=== PATIENT | male | born 1985 | race Caucasian/White ===

== ENCOUNTER 2019-02-11 19:21 | Inpatient (IN) | payer OTHER ==
[~2019-02-11] VITALS: Ht 182.9 cm; Wt 70.0 kg
[2019-02-11 19:15] VITALS: BP 116/71
[2019-02-11] MEDS ORDERED: ALBUTEROL SULFATE HFA 90 MCG/PUFF 8 GM INHALER IH PRN (22:15)
[2019-02-11] MEDS ORDERED: DOCUSATE SODIUM 100 MG CAPSULE PO PRN (22:15)
[2019-02-11] MEDS ORDERED: CloNIDine HCL 0.1 MG TABLET PO PRN (22:15)
[2019-02-11] MEDS ORDERED: MAG HYDROX/AL HYDROX/SIMETH ES 30 ML SUSPENSION UDCUP PO PRN (22:15)
[2019-02-11] MEDS ORDERED: PETROLATUM,WHITE 28 GM JELLY TP PRN (22:15)
[2019-02-11] MEDS ORDERED: NICOTINE 14 MG/24 HOUR PATCH TD PRN (22:15)
[2019-02-11] MEDS ORDERED: ONDANSETRON HCL 4 MG TABLET PO PRN (22:15)
[2019-02-11] MEDS ORDERED: GuaiFENesin/D-METHORPHAN [SUGAR-FREE] 200-20MG/10 ML SYRUP UDCUP PO PRN (22:15)
[2019-02-11] MEDS ORDERED: LOPERAMIDE HCL 2 MG CAPSULE PO PRN (22:15)
[2019-02-11] MEDS ORDERED: MAGNESIUM HYDROXIDE SUSPENSION 30 ML UDCUP PO PRN (22:15)
[2019-02-11] MEDS: IBUPROFEN 400 MG TABLET PO PRN (22:43)
[2019-02-12] MEDS: ACETAMINOPHEN 325 MG TABLET PO PRN (00:58)
[2019-02-12 00:59] VITALS: BP 103/64
[2019-02-12 04:14] VITALS: BP 111/69
[2019-02-12 06:43] LABS: BASOPHILS % (AUTO) 1.7 % (0.0-2.0); EOSINOPHILS % (AUTO) 8.4 % (1.0-6.0); HEMATOCRIT 43.3 % (41-53); LYMPHOCYTES # (AUTO) 1.8 K/uL (1.0-4.8); LYMPHOCYTES % (AUTO) 29.5 % (22.0-44.0); MEAN CORPUSCULAR HEMOGLOBIN 29.9 pg (26.0-34.0); MEAN CORPUSCULAR HGB CONC 34.7 G/dL (31.0-37.0); MEAN CORPUSCULAR VOLUME 86 fL (80-100); MONOCYTES # (AUTO) 0.4 K/uL (0.1-1.0); MONOCYTES % (AUTO) 6.3 % (2.0-9.0); NEUTROPHILS # (AUTO) 3.2 K/uL (1.8-7.7); NEUTROPHILS % (AUTO) 54.1 % (40.0-70.0); PLATELET COUNT (AUTO) 267 K/uL (150-450); RED BLOOD CELL COUNT(AUTO) 5.02 MIL/uL (4.50-5.90); RED CELL DISTRIBUTION WIDTH 13.1 % (11.5-14.5)
[2019-02-12 07:03] LABS: ALANINE AMINOTRANSFERASE 129 U/L (12-78); ALBUMIN 3.4 g/dL (3.4-5.0); ALKALINE PHOSPHATASE 67 U/L (46-116); ANION GAP 5 mmol/L (8-16); ASPARTATE AMINOTRANSFERASE 87 U/L (15-37); BILIRUBIN,TOTAL 0.3 mg/dL (0.1-1.0); CARBON DIOXIDE 31 mmol/L (22-29); CHLORIDE 103 mmol/L (98-107); CHOL/HDL RATIO 5.1 (4.2-7.3); CHOLESTEROL 149 mg/dL (131-200); CREATININE 0.88 mg/dL (0.60-1.30); GLOMERULAR FILTR. RATE CALC > 60 mL/min (>60); GLUCOSE,RANDOM 100 mg/dL (70-110); HDL CHOLESTEROL 29 mg/dL (40-60); LDL CHOL (CALC.) 101 mg/dL (0-130); POTASSIUM 3.5 mmol/L (3.5-5.1); SODIUM SERUM 139 mmol/L (136-145); THYROID STIMULATING HORMONE 3.35 uIU/mL (0.36-3.74); TOTAL PROTEIN, SERUM 6.9 g/dL (6.4-8.2); TRIGLYCERIDES 97 mg/dL (15-150); UREA NITROGEN, BLOOD 10 mg/dL (7-18)
[2019-02-12 07:59] VITALS: BP 114/74
[2019-02-12] MEDS: IBUPROFEN 400 MG TABLET PO PRN ×2 (13:02→20:35)
[2019-02-12 18:08] VITALS: BP 117/71
[2019-02-12 19:25] LABS: APPEARANCE,URINE CLEAR (CLEAR); BILIRUBIN,URINE NEGATIVE (NEGATIVE); GLUCOSE, URINE (UA) NEGATIVE (NEGATIVE); KETONES,URINE NEGATIVE (NEGATIVE); LEUKOCYTE ESTERASE ,URINE NEGATIVE (NEGATIVE); NITRATE,URINE NEGATIVE (NEGATIVE); OCCULT BLOOD,URINE NEGATIVE (NEGATIVE); PROTEIN,URINE NEGATIVE (NEGATIVE); UROBILINOGEN,URINE 0.2 mg/dL (<=1.0)
[2019-02-12 19:50] LABS: AMPHET/METH SCREEN,URINE NEGATIVE (NEGATIVE); BARBITURATE SCREEN, URINE NEGATIVE (NEGATIVE); BENZODIAZEPINES SCREEN,URINE NEGATIVE (NEGATIVE); CANNABINOID SCREEN,URINE NEGATIVE (NEGATIVE); COCAINE SCREEN,URINE NEGATIVE (NEGATIVE); METHADONE SCREEN, URINE NEGATIVE (NEGATIVE); OPIATE SCREEN,URINE NEGATIVE (NEGATIVE)
[2019-02-12 19:51] LABS: PHENCYCLIDINE SCREEN,URINE NEGATIVE (NEGATIVE)
[2019-02-12 20:10] VITALS: BP 114/66
[2019-02-12] MEDS: PRAZOSIN HCL 5 MG CAPSULE PO SCH (20:29)
[2019-02-12] MEDS: MIRTAZAPINE 15 MG TABLET PO SCH (20:34)
[2019-02-13] MEDS: MULTIVITAMINS WITH MINERALS, THERAPEUTIC TABLET PO SCH (08:39)
[2019-02-13] MEDS: IBUPROFEN 400 MG TABLET PO PRN ×2 (08:39→16:34)
[2019-02-13 15:36] VITALS: BP 106/65
[2019-02-13 19:55] VITALS: BP 116/70
[2019-02-13] MEDS: PRAZOSIN HCL 5 MG CAPSULE PO SCH (20:04)
[2019-02-13] MEDS: MIRTAZAPINE 15 MG TABLET PO SCH (20:04)
[2019-02-14 05:20] VITALS: BP 115/67
[2019-02-14] MEDS: MULTIVITAMINS WITH MINERALS, THERAPEUTIC TABLET PO SCH (08:12)
[2019-02-14 08:37] VITALS: BP 109/72
[2019-02-14] MEDS: IBUPROFEN 400 MG TABLET PO PRN ×2 (11:59→20:02)
[2019-02-14] MEDS: MIRTAZAPINE 15 MG TABLET PO SCH (20:04)
[2019-02-14] MEDS: PRAZOSIN HCL 5 MG CAPSULE PO SCH (20:05)
[2019-02-14 20:15] VITALS: BP 131/71
[2019-02-15 05:45] VITALS: BP 113/64
[2019-02-15 07:24] VITALS: BP 109/64
[2019-02-15] MEDS: MULTIVITAMINS WITH MINERALS, THERAPEUTIC TABLET PO SCH (08:43)
[2019-02-15] MEDS: IBUPROFEN 400 MG TABLET PO PRN ×2 (09:26→20:07)
[2019-02-15 16:03] VITALS: BP 114/68
[2019-02-15 19:45] VITALS: BP 100/63
[2019-02-15] MEDS: PRAZOSIN HCL 5 MG CAPSULE PO SCH (20:07)
[2019-02-15] MEDS: MIRTAZAPINE 15 MG TABLET PO SCH (20:09)
[2019-02-16 05:00] VITALS: BP 94/58
[2019-02-16] MEDS: MULTIVITAMINS WITH MINERALS, THERAPEUTIC TABLET PO SCH (08:03)
[2019-02-16] MEDS: IBUPROFEN 400 MG TABLET PO PRN ×2 (08:03→20:56)
[2019-02-16 08:05] VITALS: BP 106/61
[2019-02-16] MEDS: ACETAMINOPHEN 325 MG TABLET PO PRN (13:36)
[2019-02-16 15:41] VITALS: BP 103/58
[2019-02-16 19:32] VITALS: BP 90/55
[2019-02-16] MEDS: PRAZOSIN HCL 5 MG CAPSULE PO SCH ×2 (20:52→21:00)
[2019-02-16] MEDS: MIRTAZAPINE 15 MG TABLET PO SCH (20:53)
[2019-02-16 22:43] VITALS: BP 99/52
[2019-02-17 03:39] VITALS: BP 98/57
[2019-02-17 08:13] VITALS: BP 101/75
[2019-02-17] MEDS: MULTIVITAMINS WITH MINERALS, THERAPEUTIC TABLET PO SCH (08:53)
[2019-02-17] MEDS: IBUPROFEN 400 MG TABLET PO PRN ×2 (08:54→20:35)
[2019-02-17 15:08] VITALS: BP 106/63
[2019-02-17 20:20] VITALS: BP 96/57
[2019-02-17] MEDS: MIRTAZAPINE 15 MG TABLET PO SCH (20:35)
[2019-02-17] MEDS: PRAZOSIN HCL 5 MG CAPSULE PO SCH (20:35)
[2019-02-18 06:25] VITALS: BP 98/60
[2019-02-18 09:00] VITALS: BP 105/63
[2019-02-18] MEDS: MULTIVITAMINS WITH MINERALS, THERAPEUTIC TABLET PO SCH (10:12)
[2019-02-18 13:00] VITALS: BP 101/62
[2019-02-18 16:55] VITALS: BP 102/61
[2019-02-18 19:20] VITALS: BP 110/71
[2019-02-18] MEDS: IBUPROFEN 400 MG TABLET PO PRN (19:50)
[2019-02-18] MEDS: PRAZOSIN HCL 5 MG CAPSULE PO SCH (19:50)
[2019-02-18] MEDS: MIRTAZAPINE 15 MG TABLET PO SCH (19:50)
[2019-02-19 03:18] VITALS: BP 88/56
[2019-02-19 06:05] VITALS: BP 95/64
[2019-02-19] MEDS: MULTIVITAMINS WITH MINERALS, THERAPEUTIC TABLET PO SCH (08:43)
[2019-02-19 11:02] VITALS: BP 102/68
[2019-02-19 16:12] VITALS: BP 97/62
[2019-02-19 19:35] VITALS: BP 107/59
[2019-02-19] MEDS: MIRTAZAPINE 15 MG TABLET PO SCH (20:11)
[2019-02-19] MEDS: IBUPROFEN 400 MG TABLET PO PRN (20:11)
[2019-02-19] MEDS: PRAZOSIN HCL 5 MG CAPSULE PO SCH (21:00)
[2019-02-20 06:14] VITALS: BP 95/57
[2019-02-20 07:28] VITALS: BP 115/65
[2019-02-20] MEDS: MULTIVITAMINS WITH MINERALS, THERAPEUTIC TABLET PO SCH (07:51)
[2019-02-20 15:08] VITALS: BP 106/57
[2019-02-20 19:30] VITALS: BP 98/64
[2019-02-20] MEDS: IBUPROFEN 400 MG TABLET PO PRN (19:43)
[2019-02-20] MEDS: MIRTAZAPINE 15 MG TABLET PO SCH (20:22)
[2019-02-20] MEDS: PRAZOSIN HCL 5 MG CAPSULE PO SCH (21:00)
[2019-02-21 04:59] VITALS: BP 98/57
[2019-02-21 07:50] VITALS: BP 96/56
[2019-02-21] MEDS: IBUPROFEN 400 MG TABLET PO PRN ×2 (10:09→20:51)
[2019-02-21] MEDS: MULTIVITAMINS WITH MINERALS, THERAPEUTIC TABLET PO SCH (10:09)
[2019-02-21 17:19] VITALS: BP 100/62
[2019-02-21 20:00] VITALS: BP 105/65
[2019-02-21] MEDS ORDERED: HYPROMELLOSE 0.5% 15 ML OPHTHALMIC SOLUTION OU PRN (20:45)
[2019-02-21] MEDS: PRAZOSIN HCL 5 MG CAPSULE PO SCH (20:51)
[2019-02-21] MEDS: MIRTAZAPINE 15 MG TABLET PO SCH (20:51)
[2019-02-22 07:00] VITALS: BP 99/65
[2019-02-22] MEDS: MULTIVITAMINS WITH MINERALS, THERAPEUTIC TABLET PO SCH (08:24)
[2019-02-22 11:00] VITALS: BP 105/64
[2019-02-22 15:00] VITALS: BP 104/54
[2019-02-22 19:30] VITALS: BP 104/57
[2019-02-22] MEDS: MIRTAZAPINE 15 MG TABLET PO SCH (20:09)
[2019-02-22] MEDS: IBUPROFEN 400 MG TABLET PO PRN (20:09)
[2019-02-22] MEDS: PRAZOSIN HCL 5 MG CAPSULE PO SCH (20:09)
[2019-02-23 05:30] VITALS: BP 107/66
[2019-02-23 07:56] VITALS: BP 106/60
[2019-02-23] MEDS: MULTIVITAMINS WITH MINERALS, THERAPEUTIC TABLET PO SCH (08:48)
[2019-02-23 12:05] LABS: ALANINE AMINOTRANSFERASE 38 U/L (12-78); ALBUMIN 3.7 g/dL (3.4-5.0); ALKALINE PHOSPHATASE 72 U/L (46-116); ANION GAP 6 mmol/L (8-16); ASPARTATE AMINOTRANSFERASE 13 U/L (15-37); BILIRUBIN,TOTAL 0.3 mg/dL (0.1-1.0); CARBON DIOXIDE 31 mmol/L (22-29); CHLORIDE 100 mmol/L (98-107); GLOMERULAR FILTR. RATE CALC > 60 mL/min (>60); GLUCOSE,RANDOM 96 mg/dL (70-110); POTASSIUM 3.9 mmol/L (3.5-5.1); SODIUM SERUM 137 mmol/L (136-145); TOTAL PROTEIN, SERUM 7.4 g/dL (6.4-8.2); UREA NITROGEN, BLOOD 14 mg/dL (7-18)
[2019-02-23 15:01] VITALS: BP 102/64
[2019-02-23 19:15] VITALS: BP 109/65
[2019-02-23] MEDS: MIRTAZAPINE 15 MG TABLET PO SCH (21:53)
[2019-02-23] MEDS: PRAZOSIN HCL 5 MG CAPSULE PO SCH (21:53)
[2019-02-23] MEDS: IBUPROFEN 400 MG TABLET PO PRN (21:55)
[2019-02-24] VITALS (8 sets, daily range): BP systolic 79–138; BP diastolic 53–70
[2019-02-24] MEDS ORDERED: SODIUM CHLORIDE 0.9% 500 ML IV ONE (06:41)
[2019-02-24] MEDS ORDERED: SODIUM CHLORIDE 0.9% 1,000 ML IV SCH ×2 (06:49→07:00)
[2019-02-24] MEDS ORDERED: SODIUM CHLORIDE 0.9% 500 ML IV SCH (07:02)
[2019-02-24] MEDS: MULTIVITAMINS WITH MINERALS, THERAPEUTIC TABLET PO SCH (08:40)
[2019-02-24] MEDS: PRAZOSIN HCL 5 MG CAPSULE PO SCH (21:00)
[2019-02-24] MEDS: MIRTAZAPINE 15 MG TABLET PO SCH (22:56)
[2019-02-25] VITALS: BP 93/53
[2019-02-25 02:02] VITALS: BP 100/64
[2019-02-25 05:30] VITALS: BP 98/57
[2019-02-25 07:39] VITALS: BP 102/61
[2019-02-25] MEDS: MULTIVITAMINS WITH MINERALS, THERAPEUTIC TABLET PO SCH (08:00)
[2019-02-25 15:33] VITALS: BP 101/58
[2019-02-25 20:19] VITALS: BP 109/66
[2019-02-25] MEDS: PRAZOSIN HCL 5 MG CAPSULE PO SCH (22:15)
[2019-02-25] MEDS: MIRTAZAPINE 15 MG TABLET PO SCH (22:15)
[2019-02-26 06:00] VITALS: BP 103/61
[2019-02-26 08:13] VITALS: BP 88/61
[2019-02-26 08:34] VITALS: BP 101/55
[2019-02-26] MEDS: MULTIVITAMINS WITH MINERALS, THERAPEUTIC TABLET PO SCH (08:35)
[2019-02-26 12:00] VITALS: BP 104/71
[2019-02-26 16:13] VITALS: BP 102/73
[2019-02-26 19:23] VITALS: BP 107/71
[2019-02-26] MEDS: MIRTAZAPINE 15 MG TABLET PO SCH (20:41)
[2019-02-26] MEDS: PRAZOSIN HCL 5 MG CAPSULE PO SCH (20:42)
[2019-02-26] MEDS: IBUPROFEN 400 MG TABLET PO PRN (20:42)
[2019-02-27 05:18] VITALS: BP 98/65
[2019-02-27 08:00] VITALS: BP 105/65
[2019-02-27] MEDS: MULTIVITAMINS WITH MINERALS, THERAPEUTIC TABLET PO SCH (08:25)
[2019-02-27 12:16] VITALS: BP 108/63
[2019-02-27 16:22] VITALS: BP 106/68
[2019-02-27 19:45] VITALS: BP 103/72
[2019-02-27] MEDS: MIRTAZAPINE 15 MG TABLET PO SCH (19:49)
[2019-02-27] MEDS: IBUPROFEN 400 MG TABLET PO PRN (19:51)
[2019-02-27] MEDS: PRAZOSIN HCL 5 MG CAPSULE PO SCH (19:53)
[2019-02-28 04:35] VITALS: BP 93/59
[2019-02-28] MEDS: MULTIVITAMINS WITH MINERALS, THERAPEUTIC TABLET PO SCH (09:03)
[2019-02-28] MEDS: VENLAFAXINE HCL 75 MG ER CAPSULE PO SCH (13:51)
[2019-02-28 15:09] VITALS: BP 116/65
[2019-02-28 19:30] VITALS: BP 108/62
[2019-02-28] MEDS: IBUPROFEN 400 MG TABLET PO PRN (20:56)
[2019-02-28] MEDS: PRAZOSIN HCL 5 MG CAPSULE PO SCH (20:59)
[2019-02-28] MEDS: MIRTAZAPINE 15 MG TABLET PO SCH (20:59)
[2019-03-01 04:30] VITALS: BP 110/59
[2019-03-01 07:40] VITALS: BP 105/76
[2019-03-01] MEDS: VENLAFAXINE HCL 75 MG ER CAPSULE PO SCH ×2 (08:46→08:51)
[2019-03-01] MEDS: MULTIVITAMINS WITH MINERALS, THERAPEUTIC TABLET PO SCH ×2 (08:46→08:51)
[2019-03-01 15:10] VITALS: BP 122/75
[2019-03-01 19:48] VITALS: BP 114/73
[2019-03-01] MEDS: IBUPROFEN 400 MG TABLET PO PRN (20:50)
[2019-03-01] MEDS: PRAZOSIN HCL 5 MG CAPSULE PO SCH (20:50)
[2019-03-01] MEDS: MIRTAZAPINE 15 MG TABLET PO SCH (20:52)
[2019-03-02 04:59] VITALS: BP 116/61
[2019-03-02 07:54] VITALS: BP 101/65
[2019-03-02] MEDS: VENLAFAXINE HCL 75 MG ER CAPSULE PO SCH (09:00)
[2019-03-02] MEDS: MULTIVITAMINS WITH MINERALS, THERAPEUTIC TABLET PO SCH (09:00)
[2019-03-02 15:27] VITALS: BP 118/72
[2019-03-02 19:24] VITALS: BP 109/75
[2019-03-02] MEDS: MIRTAZAPINE 15 MG TABLET PO SCH (19:46)
[2019-03-02] MEDS: PRAZOSIN HCL 5 MG CAPSULE PO SCH (19:46)
[2019-03-03 06:41] VITALS: BP 99/70
[2019-03-03] MEDS: VENLAFAXINE HCL 75 MG ER CAPSULE PO SCH (08:24)
[2019-03-03] MEDS: MULTIVITAMINS WITH MINERALS, THERAPEUTIC TABLET PO SCH (08:24)
[2019-03-03 08:25] VITALS: BP 102/67
[2019-03-03 15:15] VITALS: BP 112/74
[2019-03-03 19:05] LABS: BASOPHILS % (AUTO) 1.5 % (0.0-2.0); EOSINOPHILS % (AUTO) 7.3 % (1.0-6.0); HEMATOCRIT 50.8 % (41-53); HEMOGLOBIN 17.1 g/dL (13.5-17.5); LYMPHOCYTES # (AUTO) 2.2 K/uL (1.0-4.8); LYMPHOCYTES % (AUTO) 25.4 % (22.0-44.0); MEAN CORPUSCULAR HGB CONC 33.8 G/dL (31.0-37.0); MEAN CORPUSCULAR VOLUME 86 fL (80-100); MONOCYTES # (AUTO) 0.4 K/uL (0.1-1.0); MONOCYTES % (AUTO) 4.8 % (2.0-9.0); NEUTROPHILS # (AUTO) 5.2 K/uL (1.8-7.7); PLATELET COUNT (AUTO) 306 K/uL (150-450); RED BLOOD CELL COUNT(AUTO) 5.91 MIL/uL (4.50-5.90); RED CELL DISTRIBUTION WIDTH 13.1 % (11.5-14.5)
[2019-03-03 19:14] LABS: ANION GAP 15 mmol/L (8-16); CARBON DIOXIDE 23 mmol/L (22-29); CHLORIDE 100 mmol/L (98-107); CREATININE 1.12 mg/dL (0.60-1.30); GLOMERULAR FILTR. RATE CALC > 60 mL/min (>60); GLUCOSE,RANDOM 74 mg/dL (70-110); POTASSIUM 3.5 mmol/L (3.5-5.1); SODIUM SERUM 138 mmol/L (136-145); UREA NITROGEN, BLOOD 15 mg/dL (7-18)
[2019-03-03 19:22] LABS: ALANINE AMINOTRANSFERASE 16 U/L (12-78); ALBUMIN 4.3 g/dL (3.4-5.0); ALKALINE PHOSPHATASE 91 U/L (46-116); ASPARTATE AMINOTRANSFERASE 17 U/L (15-37); BILIRUBIN,TOTAL 0.8 mg/dL (0.1-1.0); TOTAL PROTEIN, SERUM 8.1 g/dL (6.4-8.2)
[2019-03-03 20:20] VITALS: BP 102/72
[2019-03-03] MEDS: MIRTAZAPINE 15 MG TABLET PO SCH (20:57)
[2019-03-03] MEDS: PRAZOSIN HCL 5 MG CAPSULE PO SCH (20:57)
[2019-03-04 04:00] VITALS: BP 118/79
[2019-03-04] MEDS: MULTIVITAMINS WITH MINERALS, THERAPEUTIC TABLET PO SCH (08:37)
[2019-03-04] MEDS: VENLAFAXINE HCL 75 MG ER CAPSULE PO SCH (08:37)
[2019-03-04 10:00] VITALS: BP 106/79
[2019-03-04 16:00] VITALS: BP 112/80
[2019-03-04 19:22] VITALS: BP 111/67
[2019-03-04] MEDS: ACETAMINOPHEN 325 MG TABLET PO PRN (20:16)
[2019-03-04] MEDS: PRAZOSIN HCL 5 MG CAPSULE PO SCH (21:00)
[2019-03-04] MEDS: MIRTAZAPINE 15 MG TABLET PO SCH (21:00)
[2019-03-05 04:52] VITALS: BP 99/58
[2019-03-05 07:25] VITALS: BP 97/62
[2019-03-05] MEDS: VENLAFAXINE HCL 75 MG ER CAPSULE PO SCH (09:00)
[2019-03-05] MEDS: MULTIVITAMINS WITH MINERALS, THERAPEUTIC TABLET PO SCH (09:00)
[2019-03-05 15:45] VITALS: BP 100/60
[2019-03-05 19:35] VITALS: BP 111/73
[2019-03-05] MEDS: MIRTAZAPINE 15 MG TABLET PO SCH (21:00)
[2019-03-05] MEDS: ACETAMINOPHEN 325 MG TABLET PO PRN (21:34)
[2019-03-06 04:54] VITALS: BP 93/57
[2019-03-06] MEDS: VENLAFAXINE HCL 75 MG ER CAPSULE PO SCH (08:29)
[2019-03-06] MEDS: MULTIVITAMINS WITH MINERALS, THERAPEUTIC TABLET PO SCH (08:29)
[2019-03-06 09:00] VITALS: BP 108/63
[2019-03-06 15:20] VITALS: BP 107/68
[2019-03-06 19:50] VITALS: BP 109/73
[2019-03-06] MEDS: MIRTAZAPINE 15 MG TABLET PO SCH (20:37)
[2019-03-06] MEDS: ACETAMINOPHEN 325 MG TABLET PO PRN (20:59)
[2019-03-07 04:04] VITALS: BP 94/68
[2019-03-07 08:49] VITALS: BP 101/63
[2019-03-07] MEDS: VENLAFAXINE HCL 75 MG ER CAPSULE PO SCH (08:51)
[2019-03-07] MEDS: MULTIVITAMINS WITH MINERALS, THERAPEUTIC TABLET PO SCH (08:51)
[2019-03-07] MEDS: ARIPiprazole 5 MG TABLET PO SCH (12:44)
[2019-03-07] MEDS ORDERED: MORPHINE SULFATE 2 MG/ML SYRINGE IVP PRN (16:15)
[2019-03-07 16:28] VITALS: BP 94/63
[2019-03-07] MEDS: PANTOPRAZOLE SODIUM 40 MG DR TABLET PO SCH (20:14)
[2019-03-07] MEDS: MIRTAZAPINE 15 MG TABLET PO SCH (20:16)
[2019-03-07 20:17] VITALS: BP 101/63
[2019-03-08 05:19] VITALS: BP 98/66
[2019-03-08 08:04] VITALS: BP 82/56
[2019-03-08] MEDS: ARIPiprazole 5 MG TABLET PO SCH (09:00)
[2019-03-08] MEDS: PANTOPRAZOLE SODIUM 40 MG DR TABLET PO SCH ×2 (09:00→20:49)
[2019-03-08] MEDS: VENLAFAXINE HCL 75 MG ER CAPSULE PO SCH (09:00)
[2019-03-08] MEDS: MULTIVITAMINS WITH MINERALS, THERAPEUTIC TABLET PO SCH (09:00)
[2019-03-08 15:27] VITALS: BP 105/75
[2019-03-08 20:00] VITALS: BP 111/72
[2019-03-08] MEDS: ACETAMINOPHEN 325 MG TABLET PO PRN (20:34)
[2019-03-08] MEDS: MIRTAZAPINE 15 MG TABLET PO SCH (20:49)
[2019-03-09 00:12] LABS: BASOPHILS % (AUTO) 1.4 % (0.0-2.0); HEMATOCRIT 50.5 % (41-53); HEMOGLOBIN 16.9 g/dL (13.5-17.5); LYMPHOCYTES # (AUTO) 1.9 K/uL (1.0-4.8); LYMPHOCYTES % (AUTO) 25.8 % (22.0-44.0); MEAN CORPUSCULAR HEMOGLOBIN 29.2 pg (26.0-34.0); MEAN CORPUSCULAR HGB CONC 33.5 G/dL (31.0-37.0); MEAN CORPUSCULAR VOLUME 87 fL (80-100); MONOCYTES # (AUTO) 0.4 K/uL (0.1-1.0); MONOCYTES % (AUTO) 4.8 % (2.0-9.0); NEUTROPHILS # (AUTO) 4.2 K/uL (1.8-7.7); PLATELET COUNT (AUTO) 232 K/uL (150-450); RED BLOOD CELL COUNT(AUTO) 5.79 MIL/uL (4.50-5.90); RED CELL DISTRIBUTION WIDTH 13.2 % (11.5-14.5)
[2019-03-09 06:05] VITALS: BP 106/67
[2019-03-09 07:27] LABS: ALANINE AMINOTRANSFERASE 22 U/L (12-78); ALBUMIN 4.1 g/dL (3.4-5.0); ALKALINE PHOSPHATASE 86 U/L (46-116); ANION GAP 10 mmol/L (8-16); ASPARTATE AMINOTRANSFERASE 17 U/L (15-37); BILIRUBIN,TOTAL 1.1 mg/dL (0.1-1.0); CALCIUM, TOTAL 9.2 mg/dL (8.8-10.5); CARBON DIOXIDE 29 mmol/L (22-29); CHLORIDE 100 mmol/L (98-107); CREATININE 1.04 mg/dL (0.60-1.30); GLOMERULAR FILTR. RATE CALC > 60 mL/min (>60); GLUCOSE,RANDOM 93 mg/dL (70-110); POTASSIUM 3.4 mmol/L (3.5-5.1); SODIUM SERUM 139 mmol/L (136-145); TOTAL PROTEIN, SERUM 7.9 g/dL (6.4-8.2); UREA NITROGEN, BLOOD 13 mg/dL (7-18)
[2019-03-09 07:56] VITALS: BP 99/63
[2019-03-09] MEDS: VENLAFAXINE HCL 75 MG ER CAPSULE PO SCH (08:14)
[2019-03-09] MEDS: ARIPiprazole 5 MG TABLET PO SCH (08:14)
[2019-03-09] MEDS: PANTOPRAZOLE SODIUM 40 MG DR TABLET PO SCH ×2 (08:15→21:00)
[2019-03-09] MEDS: MULTIVITAMINS WITH MINERALS, THERAPEUTIC TABLET PO SCH (08:15)
[2019-03-09] MEDS ORDERED: POTASSIUM CHL 10 MEQ/WATER 50 ML IV PRN (15:15)
[2019-03-09] MEDS ORDERED: POTASSIUM CHLORIDE 20 MEQ ER TABLET PO PRN (15:15)
[2019-03-09 15:35] VITALS: BP 113/74
[2019-03-09 20:02] VITALS: BP 101/99
[2019-03-09] MEDS: MIRTAZAPINE 15 MG TABLET PO SCH (21:00)
[2019-03-09] MEDS: ACETAMINOPHEN 325 MG TABLET PO PRN (21:16)
[2019-03-10 05:00] VITALS: BP 97/57
[2019-03-10 07:36] LABS: MAGNESIUM 1.6 mg/dL (1.80-2.40); PHOSPHORUS 3.9 mg/dL (2.5-4.9)
[2019-03-10 08:29] VITALS: BP 98/69
[2019-03-10] MEDS: VENLAFAXINE HCL 75 MG ER CAPSULE PO SCH (09:00)
[2019-03-10] MEDS: PANTOPRAZOLE SODIUM 40 MG DR TABLET PO SCH ×2 (09:00→21:00)
[2019-03-10] MEDS: ARIPiprazole 5 MG TABLET PO SCH (09:00)
[2019-03-10] MEDS: MULTIVITAMINS WITH MINERALS, THERAPEUTIC TABLET PO SCH (09:00)
[2019-03-10 15:43] VITALS: BP 113/72
[2019-03-10 19:43] VITALS: BP 105/64
[2019-03-10] MEDS: MIRTAZAPINE 15 MG TABLET PO SCH (21:00)
[2019-03-10] MEDS: ACETAMINOPHEN 325 MG TABLET PO PRN (21:51)
[2019-03-11 05:06] VITALS: BP 100/64
[2019-03-11 08:00] VITALS: BP 115/74
[2019-03-11] MEDS: MULTIVITAMINS WITH MINERALS, THERAPEUTIC TABLET PO SCH (08:35)
[2019-03-11] MEDS: PANTOPRAZOLE SODIUM 40 MG DR TABLET PO SCH ×2 (08:35→19:55)
[2019-03-11] MEDS: VENLAFAXINE HCL 75 MG ER CAPSULE PO SCH (08:35)
[2019-03-11] MEDS: ARIPiprazole 5 MG TABLET PO SCH (08:35)
[2019-03-11] MEDS: ACETAMINOPHEN 325 MG TABLET PO PRN (10:10)
[2019-03-11 16:05] VITALS: BP 109/71
[2019-03-11 16:08] VITALS: BP 98/60
[2019-03-11 16:10] VITALS: BP 102/55
[2019-03-11 19:30] VITALS: BP 114/71
[2019-03-11] MEDS: MIRTAZAPINE 15 MG TABLET PO SCH (19:55)
[2019-03-12 05:00] VITALS: BP 93/60
[2019-03-12 08:01] VITALS: BP 104/55
[2019-03-12] MEDS: MULTIVITAMINS WITH MINERALS, THERAPEUTIC TABLET PO SCH (09:00)
[2019-03-12] MEDS: VENLAFAXINE HCL 75 MG ER CAPSULE PO SCH (09:00)
[2019-03-12] MEDS: ARIPiprazole 5 MG TABLET PO SCH (09:00)
[2019-03-12] MEDS: PANTOPRAZOLE SODIUM 40 MG DR TABLET PO SCH ×2 (09:00→20:48)
[2019-03-12 15:14] VITALS: BP 97/66
[2019-03-12 15:17] VITALS: BP 100/71
[2019-03-12 19:30] VITALS: BP 95/63
[2019-03-12 19:31] VITALS: BP 102/68
[2019-03-12] MEDS: MIRTAZAPINE 15 MG TABLET PO SCH (20:49)
[2019-03-13 04:00] VITALS: BP 102/66
[2019-03-13] MEDS: MULTIVITAMINS WITH MINERALS, THERAPEUTIC TABLET PO SCH (08:24)
[2019-03-13] MEDS: VENLAFAXINE HCL 75 MG ER CAPSULE PO SCH (08:24)
[2019-03-13] MEDS: PANTOPRAZOLE SODIUM 40 MG DR TABLET PO SCH ×2 (08:24→19:35)
[2019-03-13] MEDS: ARIPiprazole 5 MG TABLET PO SCH (08:24)
[2019-03-13 12:32] VITALS: BP 131/77
[2019-03-13 14:05] LABS: HIV 1-2 SCREEN 4TH GEN W/RFLX Non Reactive (Non Reactive)
[2019-03-13 15:01] VITALS: BP 105/67
[2019-03-13 19:27] VITALS: BP 100/66
[2019-03-13 19:28] VITALS: BP 95/60
[2019-03-13] MEDS: MIRTAZAPINE 15 MG TABLET PO SCH (19:33)
[2019-03-14 04:30] VITALS: BP 95/56
[2019-03-14 04:31] VITALS: BP 93/60
[2019-03-14 08:10] VITALS: BP 96/59
[2019-03-14 08:11] VITALS: BP 93/62
[2019-03-14] MEDS: ARIPiprazole 5 MG TABLET PO SCH (08:19)
[2019-03-14] MEDS: VENLAFAXINE HCL 75 MG ER CAPSULE PO SCH (08:19)
[2019-03-14] MEDS: PANTOPRAZOLE SODIUM 40 MG DR TABLET PO SCH (08:20)
[2019-03-14] MEDS: MULTIVITAMINS WITH MINERALS, THERAPEUTIC TABLET PO SCH (08:20)
[2019-03-14] MEDS ORDERED: MIRT-92 PO (12:36)
[2019-03-14] MEDS ORDERED: ARIP5TAB8 PO (12:36)
[2019-03-14] MEDS ORDERED: MULT-1239 PO (12:37)
[2019-03-14] MEDS ORDERED: VENL-67 PO (12:38)
[2019-03-14 16:00] VITALS: BP 98/61
== END 2019-03-14 16:55 | DRG 885 ==
LOC: EDSEX → 6S 20:25
DX: F33.2 Major depressive disorder, recurrent severe without psychotic features (principal); R45.851 Suicidal ideations; J44.1 Chronic obstructive pulmonary disease with (acute) exacerbation; F43.12 Post-traumatic stress disorder, chronic; S92.001A Unspecified fracture of right calcaneus, initial encounter for closed fracture; E87.6 Hypokalemia; S82.891A Other fracture of right lower leg, initial encounter for closed fracture; F29 Unspecified psychosis not due to a substance or known physiological condition; N40.0 Benign prostatic hyperplasia without lower urinary tract symptoms; I10 Essential (primary) hypertension; Y92.89 Other specified places as the place of occurrence of the external cause; Y93.39 Activity, other involving climbing, rappelling and jumping off
CPT/HCPCS: 80074; 80307; 83036; 83735; 84100; 84443; 87389; 93005; J3230; J7040

== ENCOUNTER 2019-03-21 13:47 | Emergency (ER) | payer OTHER ==
[~2019-03-21] VITALS: Ht 180.3 cm; Wt 71.2 kg
[~2019-03-21 13:47] MED LIST: ARIP5TAB8 PO; MIRT-92 PO; MULT-1239 PO; VENL-67 PO
[2019-03-21 14:23] LABS: BASOPHILS % (AUTO) 0.7 % (0.0-2.0); EOSINOPHILS % (AUTO) 7.3 % (1.0-6.0); HEMATOCRIT 48.7 % (41-53); HEMOGLOBIN 16.5 g/dL (13.5-17.5); LYMPHOCYTES # (AUTO) 1.4 K/uL (1.0-4.8); MEAN CORPUSCULAR HGB CONC 33.9 G/dL (31.0-37.0); MEAN CORPUSCULAR VOLUME 85 fL (80-100); MONOCYTES # (AUTO) 0.4 K/uL (0.1-1.0); MONOCYTES % (AUTO) 4.5 % (2.0-9.0); NEUTROPHILS # (AUTO) 6.7 K/uL (1.8-7.7); NEUTROPHILS % (AUTO) 72.5 % (40.0-70.0); PLATELET COUNT (AUTO) 324 K/uL (150-450); RED CELL DISTRIBUTION WIDTH 13.6 % (11.5-14.5)
[2019-03-21 14:35] LABS: ANION GAP 5 mmol/L (8-16); CALCIUM, TOTAL 9.5 mg/dL (8.8-10.5); CARBON DIOXIDE 32 mmol/L (22-29); CHLORIDE 99 mmol/L (98-107); CREATININE 1.17 mg/dL (0.60-1.30); GLOMERULAR FILTR. RATE CALC > 60 mL/min (>60); GLUCOSE,RANDOM 128 mg/dL (70-110); POTASSIUM 4.5 mmol/L (3.5-5.1); SODIUM SERUM 136 mmol/L (136-145); UREA NITROGEN, BLOOD 14 mg/dL (7-18)
[2019-03-21 14:41] LABS: ALANINE AMINOTRANSFERASE 31 U/L (12-78); ALBUMIN 4.1 g/dL (3.4-5.0); ALKALINE PHOSPHATASE 104 U/L (46-116); ASPARTATE AMINOTRANSFERASE 24 U/L (15-37); BILIRUBIN,TOTAL 0.7 mg/dL (0.1-1.0)
[2019-03-21] MEDS ORDERED: SODIUM CHLORIDE 0.9% 1,000 ML IV ONE (15:00)
[2019-03-21 15:18] LABS: PHOSPHORUS 2.7 mg/dL (2.5-4.9)
[2019-03-21] MEDS ORDERED: MAGNESIUM SULFATE 2 GM, MVI, ADULT NO.1 WITH VIT K 10 ML, THIAMINE HCL 100 MG, FOLIC AC... IV ONE ×5 (15:30)
[2019-03-21 17:58] VITALS: BP 100/62
== END 2019-03-21 18:04 | disposition home or self-care (01) ==
LOC: EMS 13:54
DX: T73.0XXA Starvation, initial encounter (principal); E46 Unspecified protein-calorie malnutrition; I95.9 Hypotension, unspecified; F32.9 Major depressive disorder, single episode, unspecified; Z68.21 Body mass index [BMI] 21.0-21.9, adult; X58.XXXA Exposure to other specified factors, initial encounter
CPT/HCPCS: 36415; 80053; 82962; 83735; 84100; 84484; 85025; 93005; 96365; 96366; 99285; J3411; J3475; J3490 ×2; J7030